=== PATIENT | male | born 1945 | race Asian ===

== ENCOUNTER 2016-12-28 11:38 | Emergency (ER) | payer OTHER ==
[2016-12-28 11:43] VITALS: RESP 16
--- NOTE | 2016-12-28 13:49 | EDPHY ---
H & P Stated Complaint: Scrapes/lacs to both hands and L knee;tripped while hiking; no other injs HPI/ROS: Chief complaint: Bilateral hand injuries History of present illness: This is a 71-year-old male who presents to the emergency department for bilateral hand injuries. He was hiking when he tripped and fell forward scraping his hands. He has noted multiple abrasions and cuts. He denies associated signs or symptoms including no abnormal coolness or paresthesias in the fingers. He is still moving the fingers well. No pain in the wrists forearms or the rest of the arms. He is moving the wrists and elbows a well. No other trauma reported. His tetanus is up-to-date. - Personal History Current Tetanus Diphtheria and Acellular Pertussis (TDAP): Yes - Social History Smoking Status: Never smoked - Physical Exam Exam: General: Alert, nontoxic Skin: Multiple abrasions to the hands the better dirty as well as a 1 cm laceration to the thenar eminence of the left hand. Musculoskeletal: Mild tenderness diffusely to the palm and the thumbs. Patient is moving all digits in all joints in all damian well. The wrist including the snuffbox are nontender bilaterally. He is moving the wrist well. The forearms, elbows and upper arms are unremarkable. Vascular: Radial pulses 2+ bilaterally. Capillary refill brisk in all digits in both hands. Neurologic: Sensation intact in all digits of both hands. Constitutional: Initial Vital Signs Temperature (C) 36.6 C 12/28/16 11:38 Heart Rate 63 12/28/16 11:38 Respiratory Rate 16 12/28/16 11:38 Blood Pressure 134/93 H 12/28/16 11:38 O2 Sat (%) 97 12/28/16 11:38 O2 Delivery Mode Room Air Allergies/Adverse Reactions: No Known Allergies Allergy (Unverified 12/28/16 11:43) Home Medications: Medication Instructions Recorded NK [No Known Home Meds] 12/28/16 Medical Decision Making - Diagnostics Imaging: I viewed and interpreted images myself Procedures: Procedure: Laceration repair. Verbal consent was obtained from the patient. The 1 cm laceration on the left hand was anesthetized in the usual fashion. The wound was irrigated, draped and explored to its base with a gloved finger. There were no deep structures involved. No tendon injury was identified. The wound was repaired with 5 0 Prolene, 3 simple interrupted sutures with loose approximation . The wound repair was simple . The procedure was performed by myself. Procedure: Splint placement. A finger splint was applied. After application of the splint I returned and re- examined the patient. The splint was adequately immobilizing the joint and distal to the splint the patient's circulation and sensation was intact. ED Course/Re-evaluation: Patient seen under the supervision of my secondary supervising physician Dr. Mando Schmitz. Patient presents to the emergency department for bilateral hand injuries. The hands are neurovascularly intact. He has good musculoskeletal control. X-ray confirm a small bony fracture to the left thumb. Foreign body contamination is noted. Wounds are superficial primarily and are vigorously cleaned. He has a small laceration that has been vigorously irrigated and explored without retained foreign body and loosely approximated. His thumb is splinted. The wounds are dressed. He is discharged home. He is referred to hand surgery for recheck. Return precautions are given. Patient voiced understanding and agreement with plan. Differential Diagnosis: Included but not limited to abrasions, lacerations, deep structure injury, foreign body contamination Departure - Departure Disposition: Home, Routine, Self-Care Clinical Impression: Abrasions of multiple sites Condition: Good Instructions: Finger Fracture (ED), Abrasion (ED), Acute Wounds (ED) Additional Instructions: Follow-up with a primary care doctor and a hand doctor for recheck Stitches to be removed in 7 days If symptoms worsen or new symptoms develop return to the emergency room for recheck Referrals: NONE *PRIMARY CARE P,. [Primary Care Provider] - As per Instructions [facility],. [Clinic] - As per Instructions José Miguel Blackwood MD [Medical Doctor] - As per Instructions
[2016-12-28] MEDS ORDERED: LET GEL TOPICAL 1 EA SYR TP ONE (13:53)
[2016-12-28 15:28] VITALS: BP 133/78; PULSE 69; TEMP 98.8; O2SAT 95
== END 2016-12-28 15:27 | disposition home or self-care (01) ==
PROC: 0HQGXZZ Repair Left Hand Skin, External Approach (ICD-10-PCS; principal; 2016-12-28)
DX: S60.512A Abrasion of left hand, initial encounter (principal); S60.511A Abrasion of right hand, initial encounter; S61.412A Laceration without foreign body of left hand, initial encounter; W01.0XXA Fall on same level from slipping, tripping and stumbling without subsequent striking against object, initial encounter; Y99.8 Other external cause status; Y93.01 Activity, walking, marching and hiking